=== PATIENT | male | born 1965 | race Caucasian/White ===

== ENCOUNTER → 2021-08-17 | Outpatient (CLI) | payer OTHER ==
--- NOTE | 2021-09-07 21:03 | SLEEP ---
[address] [address] SLEEP STUDY REPORT Name: PARVEEN SNIDER Room: [facility].#: [id number] Admission: 08/17/21 Attend Phys: Kishor Acevedo Discharge: Date of : 61 Report #: [id number] THIS REPORT FOR: cc: FAM - Family physician unknown FAM - Family physician unknown Bandar Astudillo MD ~ DATE OF STUDY: 08/17/2021 SLEEP STUDY INDICATION FOR SLEEP STUDY: A previous diagnosis of obstructive sleep apnea. The patient has used a CPAP many years ago. Sleep study is now being performed to reestablish diagnosis. INTERPRETATION: Total duration of the study is 414 minutes, out of which he was asleep for 183 minutes only with an overall sleep efficiency markedly decreased to 44.3%. Sleep onset initially occurred 1 minute after lying down in bed; however, wake after sleep onset time is significantly elevated to 230. REM sleep occurred first 44.5 minutes after sleep onset. N1 sleep duration is 34%, N2 duration is 47%, N3 duration is 6% and REM duration is 13%. When the patient was asleep, we did observe multiple sleep related respiratory events. These included 26 central apneas in addition to 10 obstructive apneas and 5 hypopneas in addition to 11 respiratory effort-related arousals. The patient continues to have episodes of stage wake throughout the sleep study and therefore some of these central apneas are close to sleep-wake transition. Overall, apnea-hypopnea index is significantly elevated to 20. Body position data indicates the patient was observed asleep in the supine position for 113 minutes, the rest of the time the patient was in other positions. Supine apnea-hypopnea index is higher at 26.5. Mean heart rate was 60. Periodic limb movement index is normal at 5.6 and arousal index is elevated to 28. There are multiple desaturations recorded. The patient did spend 131 minutes below an O2 saturation of 90%. The patient is reported to have used a CPAP machine around 10 years ago and subsequently he is reported to have refused. Also, the production control technologist reported that during the sleep study, the patient was at times confused. He in fact pulled off his EEG leads and also kept pulling on the peak flow cannula. The patient's reported that he wakes up at times during the night and gets out of bed to eat. IMPRESSION: 1. Sleep apnea is noted with an apnea-hypopnea index of 20.0. There appears to be a component of both central as well as obstructive sleep apnea while a majority of central apneas are of central origin. [place] [address] SLEEP STUDY REPORT Name: RICHARD SNIDERLOTUS [facility] [id number] Admission: 08/17/21 Attend Phys: Kishor Acevedo Discharge: Date of : 61 Report #: [id number] to sleep-wake transition at times on account of stage wake occurring throughout the sleep study. 2. Sleep related respiratory events are more common when the patient is lying supine. Supine apnea-hypopnea index is 26.5. 3. There is nocturnal hypoxemia. The patient spent 131 minutes below an O2 saturation of 90%. 4. The patient at times was confused as above during the sleep study and did pull off his EEG leads and at times was pulling on the pressure flow cannula. RECOMMENDATIONS: Recommend proceeding to a repeat sleep study for positive airway pressure titration. As above, more events are central than obstructive; however, are close to sleep-wake transition at times. Therefore, it is reasonable to initially start off with CPAP. However, if the patient continues to have sleep-related respiratory events on CPAP, I would recommend having a low threshold of switching over to regular BiPAP and if needed, ASV. Clinical correlation is advised regarding reported intermittent confusion as above. Weight loss may be of benefit. This entire sleep study was reviewed by board certified sleep physician. <ELECTRONICALLY SIGNED> By: Bandar Astudillo MD 09/07/21 [id number] Astudillo MD /nancy
== END ==
LOC: M.SLEEPLAB 20:00
PROVIDERS: ATTEND Chiropractor
DX: G47.33 Obstructive sleep apnea (adult) (pediatric) (principal)